=== PATIENT | male | born 1995 | race Caucasian/White ===

== ENCOUNTER 2018-07-01 16:56 | Emergency (ER) | payer OTHER ==
[2018-07-01] MEDS ORDERED: TETANUS & DIPHTHERIA TOX,ADULT 0.5 ML VIAL ONE (18:17)
[2018-07-01] MEDS ORDERED: HYDROCODONE/APAP 5/325 MG TAB ONE (18:17)
[2018-07-01] MEDS ORDERED: KETOROLAC 30 MG/ML INJ ONE (18:17)
--- NOTE | 2018-07-01 18:34 | EDPHYS ---
Physician Documentation [facility] Name: Elmer Jones Age: 23 yrs Sex: Male : 1995 Arrival Date: 07/01/2018 Time: 16:57 Bed 18 Private MD: ED Physician Blayne Ring HPI: 07/01 17:57 This 23 yrs old Male presents to ER via Ambulatory with complaints of abscess snw to right lower abdomen. 17:57 The patient presents with an abscess of the right lower quadrant, The patient presents snw with cellulitis of the right lower quadrant, surrounding localized abscess. Description: The affected area is moderate sized, well demarcated, erythematous, pointed. Onset: The symptoms/episode began/occurred suddenly, and became worse. Possible cause(s): unknown. Associated signs and symptoms: Pertinent positives: erythema. Severity of symptoms: At their worst the symptoms were moderate. The patient has not experienced similar symptoms in the past. The patient has been recently seen by a physician:. Mom gave pt a doxycycline and clindamycin this am. Historical: - Allergies: 17:30 No Known Allergies; aj1 - Home Meds: 17:30 None [Active]; aj1 - PMHx: 17:30 None; aj1 - PSHx: 17:30 None; aj1 - Immunization history:: Flu vaccine is up to date. - Social history:: Smoking status: Patient uses tobacco products, smokes one pack cigarettes per day. - Ebola Screening: : Patient denies travel to an Ebola-affected area in the 21 days before illness onset. ROS: 18:35 Constitutional: Negative for fever, chills, and weight loss, Eyes: Negative for injury, snw pain, redness, and discharge, ENT: Negative for injury, pain, and discharge, Neck: Negative for injury, pain, and swelling, Cardiovascular: Negative for chest pain, palpitations, and edema, Respiratory: Negative for shortness of breath, cough, wheezing, and pleuritic chest pain, Abdomen/GI: Negative for abdominal pain, nausea, vomiting, diarrhea, and constipation, Back: Negative for injury and pain, : Negative for injury, bleeding, discharge, and swelling, MS/Extremity: Negative for injury and deformity, Neuro: Negative for headache, weakness, numbness, tingling, and seizure, Psych: Negative for depression, anxiety, suicide ideation, homicidal ideation, and hallucinations. 18:35 Skin: Positive for abscess, cellulitis, of the right lower quadrant. Exam: 17:53 Constitutional: This is a well developed, well nourished patient who is awake, alert, snw and in no acute distress. Head/Face: Normocephalic, atraumatic. Eyes: Pupils equal round and reactive to light, extra-ocular motions intact. Lids and lashes normal. Conjunctiva and sclera are non-icteric and not injected. Cornea within normal limits. Periorbital areas with no swelling, redness, or edema. ENT: Nares patent. No nasal discharge, no septal abnormalities noted. Tympanic membranes are normal and external auditory canals are clear. Oropharynx with no redness, swelling, or masses, exudates, or evidence of obstruction, uvula midline. Mucous membranes moist. Neck: Trachea midline, no thyromegaly or masses palpated, and no cervical lymphadenopathy. Supple, full range of motion without nuchal rigidity, or vertebral point tenderness. No Meningismus. Chest/axilla: Normal chest wall appearance and motion. Nontender with no deformity. No lesions are appreciated. Cardiovascular: Regular rate and rhythm with a normal S1 and S2. No gallops, murmurs, or rubs. Normal PMI, no JVD. No pulse deficits. Respiratory: Lungs have equal breath sounds bilaterally, clear to auscultation and percussion. No rales, rhonchi or wheezes noted. No increased work of breathing, no retractions or nasal flaring. Abdomen/GI: Soft, non-tender, with normal bowel sounds. No distension or tympany. No guarding or rebound. No evidence of tenderness throughout. Back: No spinal tenderness. No costovertebral tenderness. Full range of motion. MS/ Extremity: Pulses equal, no cyanosis. Neurovascular intact. Full, normal range of motion. Neuro: Awake and alert, GCS 15, oriented to person, place, time, and situation. Cranial nerves II-XII grossly intact. Motor strength 5/5 in all extremities. Sensory grossly intact. Cerebellar exam normal. Normal gait. Psych: Awake, alert, with orientation to person, place and time. Behavior, mood, and affect are within normal limits. 17:53 Skin: Appearance: normal except for affected area, abscess, that is small, of the right lower quadrant, with pointing, with surrounding cellulitis, that is moderate. Vital Signs: 17:30 BP 128 / 83; Pulse 91; Resp 18; Temp 98.3; Pulse Ox 98% on R/A; Weight 88.45 kg (R); aj1 Height 6 ft. 4 in. (193.04 cm) (R); Pain 8/10; 17:30 Body Mass Index 23.74 (88.45 kg, 193.04 cm) aj1 Procedures: 17:53 I \T\ D: Incision and drainage was performed for an abscess of the right lower abdomen snw Prepped with hibiclens. Incised with unroofed pustule with 18 gauge needle. Drained large amount purulent fluid. the patient tolerated the procedure well. 18:31 Performed after pain medication administration, firm pressure applied to either side of snw opening and large amt exudate expressed. MDM: 17:43 Patient medically screened. snw 17:53 Data reviewed: vital signs, nurses notes. Data interpreted: Pulse oximetry: on room air snw is 98 %. Interpretation: normal. Counseling: I had a detailed discussion with the patient and/or guardian regarding: the historical points, exam findings, and any diagnostic results supporting the discharge/admit diagnosis, the presence of at least one elevated blood pressure reading (>120/80) during this emergency department visit. 07/01 18:35 Order name: Wound dressing; Complete Time: 18:38 snw Administered Medications: 18:21 Drug: Tetanus-Diphtheria Toxoid Adult 0.5 ml {[employer]: [employer]. Exp: em 08/05/2020. Lot #: [id number]. } Route: IM; Site: right deltoid; 18:38 Follow up: Response: No adverse reaction em 18:22 Drug: TORadol 60 mg Route: IM; Site: right deltoid; em 18:38 Follow up: Response: No adverse reaction; Pain is decreased em 18:22 Drug: [place] 5 mg-325 mg 1 tabs Route: PO; em 18:38 Follow up: Response: No adverse reaction; Pain is decreased em 18:38 Drug: Hibiclens 4 % 1 application Route: Topical; Site: wound; em 18:38 Follow up: Response: No adverse reaction em 18:45 Drug: Clindamycin 300 mg Route: PO; em 18:50 Follow up: Response: Medication administered at discharge. em Disposition: 07/02 07:52 Co-signature as Attending Physician, Blayne Ring MD. Disposition: 07/01/18 18:33 Discharged to Home. Impression: Cutaneous abscess to right lower abdominal area. - Condition is Stable. - Discharge Instructions: Skin Abscess, Cellulitis, Adult, Incision and Drainage, VIS, Tetanus, Diphtheria (Td) - CDC. - Prescriptions for Clindamycin HCl 300 mg Oral Capsule - take 1 capsule by ORAL route every 6 hours for 10 days; 40 capsule. Diclofenac Sodium 75 mg Oral Tablet Sustained Release - take 1 tablet by ORAL route 2 times per day; 30 tablet. - Medication Reconciliation Form, Thank You Letter, Antibiotic Education, Prescription Opioid Use form. - Follow up: Private Physician; When: 2 - 3 days; Reason: Recheck today's complaints, Continuance of care, Re-evaluation by your physician. Follow up: Emergency Department; When: As needed; Reason: Worsening of condition. Signatures: Jennifer Keane RN RN aj1 Richa Lopez FNP-C INSIDE WIREMAN-Mireillew Kingsley Maldonado, COMMUNICATION ENGINEER COMMUNICATION ENGINEER Blayne Ring MD MD Corrections: (The following items were deleted from the chart) 07/01 18:51 18:33 07/01/2018 18:33 Discharged to Home. Impression: Cutaneous abscess to right lower em abdominal area. Condition is Stable. Forms are Medication Reconciliation Form, Thank You Letter, Antibiotic Education, Prescription Opioid Use. Follow up: Private Physician; When: 2 - 3 days; Reason: Recheck today's complaints, Continuance of care, Re-evaluation by your physician. Follow up: Emergency Department; When: As needed; Reason: Worsening of condition. snw
--- NOTE | 2018-07-01 18:34 | ER ---
Nurse's Notes [facility] Name: Elmer Jones Age: 23 yrs Sex: Male : 1995 Arrival Date: 07/01/2018 Time: 16:57 Bed 18 Private MD: Diagnosis: Cutaneous abscess to right lower abdominal area Presentation: 07/01 17:28 Presenting complaint: Patient states: Abscess to right lower abdomen. Denies fever, aj1 denies drainage. Patient states that he took clindamycin and doxycycline earlier today. Transition of care: patient was not received from another setting of care. Onset of symptoms was June 30, 2018. Risk Assessment: Do you want to hurt yourself or someone else? Patient reports no desire to harm self or others. Initial Sepsis Screen: Does the patient meet any 2 criteria? HR > 90 bpm. No. Patient's initial sepsis screen is negative. Does the patient have a suspected source of infection? Yes: Skin breakdown/wound. Care prior to arrival: None. 17:28 Method Of Arrival: [place] [facility] [place] 17:28 Acuity: UDAY 3 aj1 Triage Assessment: 17:30 General: Appears in no apparent distress. uncomfortable, Behavior is calm, cooperative, aj1 appropriate for age. Pain: Complains of pain in right lower quadrant Pain currently is 8 out of 10 on a pain scale. Neuro: Level of Consciousness is awake, alert, obeys commands. Cardiovascular: Patient's skin is warm and dry. Respiratory: Airway is patent Respiratory effort is even, unlabored, Respiratory pattern is regular, symmetrical. Historical: - Allergies: 17:30 No Known Allergies; aj1 - Home Meds: 17:30 None [Active]; aj1 - PMHx: 17:30 None; aj1 - PSHx: 17:30 None; aj1 - Immunization history:: Flu vaccine is up to date. - Social history:: Smoking status: Patient uses tobacco products, smokes one pack cigarettes per day. - Ebola Screening: : Patient denies travel to an Ebola-affected area in the 21 days before illness onset. Screenin:27 Abuse screen: Denies threats or abuse. Nutritional screening: No deficits noted. em Tuberculosis screening: No symptoms or risk factors identified. Fall Risk None identified. Assessment: 18:10 General: Appears in no apparent distress. comfortable, Behavior is calm, cooperative, em Denies fever. Pain: Complains of pain in right lower quadrant Pain currently is 8 out of 10 on a pain scale. Neuro: Level of Consciousness is awake, alert, obeys commands, Oriented to person, place, time, situation. Cardiovascular: Capillary refill < 3 seconds Patient's skin is warm and dry. Respiratory: Airway is patent Respiratory effort is even, unlabored, Respiratory pattern is regular, symmetrical. GI: Abdomen is flat, Patient currently denies nausea, vomiting. Derm: Skin is intact, is healthy with good turgor, Skin is pink, warm \T\ dry. Abscess located on right lower quadrant is nickel sized. Musculoskeletal: Range of motion: intact in all extremities. 18:15 General: The previous assessment is accurate, call light remains within reach. . ss Vital Signs: 17:30 BP 128 / 83; Pulse 91; Resp 18; Temp 98.3; Pulse Ox 98% on R/A; Weight 88.45 kg (R); aj1 Height 6 ft. 4 in. (193.04 cm) (R); Pain 8/10; 17:30 Body Mass Index 23.74 (88.45 kg, 193.04 cm) aj1 ED Course: 16:57 Patient arrived in ED. sb2 17:30 Triage completed. aj1 17:30 Arm band placed on Patient placed in an exam room. aj1 17:43 Richa Lopez FNP-C [facility]. snw 17:43 Blayne Ring MD is Attending Physician. snw 17:58 Kingsley Maldonado LVN is Primary Nurse. em 18:27 Patient has correct armband on for positive identification. Bed in low position. Call em light in reach. Adult w/ patient. 18:50 No provider procedures requiring assistance completed. Patient did not have IV access em during this emergency room visit. Administered Medications: 18:21 Drug: Tetanus-Diphtheria Toxoid Adult 0.5 ml {[employer]: [place]. Exp: em 08/05/2020. Lot #: [id number]. } Route: IM; Site: right deltoid; 18:38 Follow up: Response: No adverse reaction em 18:22 Drug: TORadol 60 mg Route: IM; Site: right deltoid; em 18:38 Follow up: Response: No adverse reaction; Pain is decreased em 18:22 Drug: [place] 5 mg-325 mg 1 tabs Route: PO; em 18:38 Follow up: Response: No adverse reaction; Pain is decreased em 18:38 Drug: Hibiclens 4 % 1 application Route: Topical; Site: wound; em 18:38 Follow up: Response: No adverse reaction em 18:45 Drug: Clindamycin 300 mg Route: PO; em 18:50 Follow up: Response: Medication administered at discharge. em Outcome: 18:33 Discharge ordered by . snw 18:50 Discharged to home ambulatory, with family. em 18:50 Condition: good 18:50 Discharge instructions given to patient, Instructed on discharge instructions, follow up and referral plans. medication usage, Demonstrated understanding of instructions, follow-up care, medications, Prescriptions given X 2. 18:51 Patient left the ED. em Signatures: Jennifer Keane RN RN aj1 Richa Lopez, AWS SOLUTION ARCHITECT-C AWS SOLUTION ARCHITECT-Csnw Kingsley Maldonado, PHLEBOTOMY DIRECTOR PHLEBOTOMY DIRECTOR em Nadine Robb RN RN Macy De Leon sb2 Corrections: (The following items were deleted from the chart) 17:34 17:28 Presenting complaint: Patient states: Abscess to right lower abdomen. Denies aj1 fever, denies drainage aj1
[2018-07-01] MEDS ORDERED: CLINDAMYCIN HCL 150 MG CAP ONE (18:49)
== END 2018-07-01 18:51 | disposition home or self-care (01) ==
LOC: ER 16:56
PROC: 0J980ZZ Drainage of Abdomen Subcutaneous Tissue and Fascia, Open Approach (ICD-10-PCS; principal; 2018-07-01)
DX: L02.211 Cutaneous abscess of abdominal wall (principal); F17.210 Nicotine dependence, cigarettes, uncomplicated; Z23 Encounter for immunization
CPT/HCPCS: 90714; 96372; 99283